=== PATIENT | female | born 1960 | race Two or more races ===

== ENCOUNTER 2025-05-19 09:54 | Emergency (ER) | payer OTHER ==
[2025-05-19 10:03] VITALS: BP 128/68; PULSE 69; RESP 18; TEMP 97.6; BMI 29.9
[2025-05-19 12:39] LABS: HCV DIAGNOSTIC IN-HOUSE W/RFLX NON-REACTIVE (NONREACTIVE)
[2025-05-19 12:40] LABS: HIV INTERPRETATION NEGATIVE (NEGATIVE)
== END 2025-05-19 11:55 | disposition home or self-care (01) ==
LOC: JER 09:54 → JERFT 09:54
DX: J02.9 Acute pharyngitis, unspecified (principal); R09.81 Nasal congestion; R05.9 Cough, unspecified
CPT/HCPCS: 36415; 86803; 87389; 87637-QW; 87651; 99283-25

== ENCOUNTER 2025-06-18 16:25 | Emergency (ER) | payer OTHER ==
[2025-06-18 16:29] VITALS: BP 125/77; PULSE 66; RESP 18; TEMP 98.3; BMI 29.9
[2025-06-18] MEDS ORDERED: IBUPROFEN 600 MG TABLET (FP) PO ONE (17:10)
[2025-06-18] MEDS ORDERED: LIDOCAINE 5% TOPICAL PATCH ONE (17:12)
[2025-06-18] MEDS: IBUPROFEN 600 MG TABLET (FP) PO ONE (17:32)
[2025-06-18] MEDS ORDERED: ACETAMINOPHEN 500 MG TABLET (FP) ONE (17:32)
[2025-06-18] MEDS: LIDOCAINE 5% TOPICAL PATCH TP ONE (17:35)
[2025-06-18] MEDS: ACETAMINOPHEN 500 MG TABLET (FP) PO ONE (17:35)
[2025-06-18] MEDS ORDERED: LIDOCAINE PATCH REMOVAL MC SCH (22:00)
== END 2025-06-18 19:18 | disposition home or self-care (01) ==
LOC: JERFT 16:25
DX: S16.1XXA Strain of muscle, fascia and tendon at neck level, initial encounter (principal); M54.50 Low back pain, unspecified; M79.642 Pain in left hand; V87.7XXA Person injured in collision between other specified motor vehicles (traffic), initial encounter; Y92.410 Unspecified street and highway as the place of occurrence of the external cause
CPT/HCPCS: 70450-TC; 72125-TC; 72131-TC; 73130-TC-LT-FY; 99284-25